=== PATIENT | female | born 1955 | race Caucasian/White ===

== ENCOUNTER → 2017-09-10 | Day surgery (SDC) | payer BC ==
[~2017-09-10] MED LIST: BUPIVACAINE HCL 0.5% INJ 30 ML VIAL INJ ONE; CEFAZOLIN SOD 2 GM/D5W 50ML 50 ML IV ONE; DEXAMETHASONE SOD PHOS INJ 4 MG/ML VIAL ONE; FENTANYL CITRATE/PF 100MCG/2 ML INJ ONE; HYDROMORPHONE 1MG/1ML INJ ONE; LIDOCAINE HCL 2% LOCAL INJ 5 ML SDV VIAL INJ ONE; MIDAZOLAM HCL 2 MG/2 ML VIAL ONE; NEOSTIGMINE 1 MG/ML 10ML VIAL ONE; ONDANSETRON HCL INJ 2 MG/ML VIAL ONE; PROPOFOL IV EMULSION 10 MG/ML 20 ML VIAL ONE; SEVOFLURANE INHAL SOLN 250 ML PEN BTL ONE
--- OUTSIDE RECORDS SUMMARY | 2017-09-10 06:37 | XMS REPORT ---
Author Author [facility] Address Unknown Phone Unavailable Care Team Providers Care Racking Technician Name Role Phone DEJON DIAZ Unavailable Unavailable Problems This patient has no known problems. Allergies, Adverse Reactions, Alerts This patient has no known allergies or adverse reactions. Medications This patient has no known medications. Results Test Description Test Time Test Comments Text Results Atomic Results Result Comments CHEST [address] [address] Patient Name: FARHAN LANCE MR #: [id number] : 1955 Age/Sex: 61/F Req #: [id number] Adm Physician: Ordered by: DEJON DIAZ DPM Report #: [id number] Location: OR Room/Bed: Procedure: [id number] DX/CHEST 2 VIEWS Exam Date: 02/09/17 Exam Time: 817 REPORT STATUS: Signed PROCEDURE: CHEST 2 VIEWS TECHNIQUE: PA and lateral chest INDICATION: Preoperative evaluation for foot surgery COMPARISON: None. FINDINGS: The lungs are clear and symmetrically inflated. No pleural effusions. Normal heart size and mediastinal contour, with mildly tortuous thoracic aorta. Normal central vasculature. Intact skeleton with degenerative disc disease. CONCLUSION: Normal chest for age. Dictated by: Patricia Richards M.D. on 2016 at 8:43 Electronically approved by: Patricia Richards M.D. on 04/2017 at 8:43 Dictated By: PATRICIA RICHARDS MD 2 Transcribed By: RENNY on 02/09/17842 COPY TO: DEJON DIAZ DPM
--- NOTE | 2017-09-10 14:08 | Operative Report ---
DATE OF PROCEDURE: September 10, 2017 PREOPERATIVE DIAGNOSIS: Painful hardware left foot 1st metatarsal cuneiform joint as well as hammertoes 2, 3 and 4 of the left foot. There is also a mild varus deformity of the left foot. POSTOPERATIVE DIAGNOSIS: Painful hardware left foot 1st metatarsal cuneiform joint as well as hammertoes 2, 3 and 4 of the left foot. There is also a mild varus deformity of the left foot. TITLE OF OPERATION: Removal of hardware left foot, arthrodesis with 0.045 K-wires digits 2, 3, 4 and 5 left foot, and then varus repair with osteotomy reverse Tom left foot. ANESTHESIA: General endotracheal. HEMOSTASIS: A left thigh tourniquet at 350 mmHg. PROCEDURE IN DETAIL: The patient was taken to the operating room in a mildly sedated state and placed upon the operating table in the supine position. Following induction of general anesthetic, the left lower extremity was elevated to 60 degrees to exsanguinate before inflating the pneumatic thigh tourniquet to 350 mmHg to create hemostasis. The left foot was placed upon the operating table prior to performing the following procedure. Procedure number 1 is The hardware removal of the base of the 1st metatarsal cuneiform joint of the left foot. A linear incision was placed overlying the 2 Treace plates at the 1st metatarsal base. This incision was deepened via sharp and blunt dissection down to the level of the plates themselves, which were reflected, and a total of 8 screws and 2 plates were removed from the area utilizing the screw removal device. The area was irrigated, and structural integrity was ensured. Deep closure was 3-0 Vicryl. Skin closure was 4-0 nylon. A separate incision was placed overlying the 1st metatarsophalangeal joint, which was noted to be malpositioned with regards to the sesamoid apparatus in the 1st metatarsal proximal phalanx. A release of all soft tissues failed to alleviate the contracture medialward. Therefore, intraoperative decision was made for a reverse Tom. A [id number] V osteotomy was placed with the apex distally and base proximally, which allowed for a shift medialward of the head of the more proximal segment, which was then impacted and stabilized with a 0.062 K-wire. The area was remodeled, irrigated and closed with 3-0 Vicryl and 4-0 nylon. Position of the hallux was markedly improved. Attention was then directed to digits 2, 3 and 4 for removal of implanted devices. The linear incision at the proximal interphalangeal joint allowed for dissection down to the 2-step implant which was identified and, then with the distraction of the joint, released from the underlying tension of the implant itself. The implant insertion/removal device was then used to unscrew the implant from the intermediate phalanx. This having been accomplished, the area was irrigated with copious amounts of sterile saline solution. Same was done on the other wounds. Deep closure was 3-0 Vicryl. Skin closure 4-0 nylon. The areas of surgery were blocked with 0.5 Marcaine, Decadron LA. After removal, all K-wires were inserted in a retrograde technique to reapproximate the intermediate phalangeal joint fusion to the head of the proximal phalanx. This having been accomplished and excellent alignment being noted, K-wires were bent and cut to their appropriate lengths and tendon repair was achieved and deep closure was 3-0 Vicryl, 4-0 nylon. At this point, the release of the pneumatic thigh tourniquet showed a normal hyperemic flush to all digits of the left foot, and the patient left the operating room with vital signs stable, in apparent satisfactory condition, having tolerated both the anesthetic and procedure very well. Job#: [id number]
== END | disposition home or self-care (01) ==
LOC: OR 06:34
PROVIDERS: ATTEND Podiatrist Foot Surgery
DX: T84.84XA Pain due to internal orthopedic prosthetic devices, implants and grafts, initial encounter (principal); M21.172 Varus deformity, not elsewhere classified, left ankle; M20.42 Other hammer toe(s) (acquired), left foot; Y83.8 Other surgical procedures as the cause of abnormal reaction of the patient, or of later complication, without mention of misadventure at the time of the procedure; B15.9 Hepatitis A without hepatic coma; Z01.810 Encounter for preprocedural cardiovascular examination
CPT/HCPCS: 20680; 28285 ×4; 28296; 93005; J1100; J1170; J2001; J2250; J2405; J2710; Q4100; 76001